=== PATIENT | female | born 1990 | race African-American/Black ===

== ENCOUNTER → 2016-11-20 | Outpatient (CLI) | payer BC ==
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
== END | disposition home or self-care (01) ==
LOC: CWCC 11:33
DX: N63 Unspecified lump in breast (principal); N60.01 Solitary cyst of right breast; V89.2XXS Person injured in unspecified motor-vehicle accident, traffic, sequela
CPT/HCPCS: 76641; G0206